=== PATIENT | female | born 1980 ===

== ENCOUNTER 2017-04-25 15:03 | Emergency (ER) | payer OTHER ==
[2017-04-25 15:53] VITALS: BP 152/86; PULSE 114; RESP 16; TEMP 98.2; O2SAT 100
--- NOTE | 2017-04-25 16:16 | ED PDOC ---
HPI: Female Pain Time Seen by Provider: 04/25/17 15:50 Chief Complaint (Nursing): Female Genitourinary Chief Complaint (Provider): Female Genitourinary History Per: Patient History/Exam Limitations: no limitations Onset/Duration Of Symptoms: Days (x4) Current Symptoms Are (Timing): Still Present Additional Complaint(s): Neva Burnett is a 37 year old female who presents to the ED due to a possible UTI x4 days. Patient confirms dysuria, urinary requency, urinary hesitancy, and slight hematuria. Denies fever, vomiting, and diarrhea. States she was given 1 tablet of Macrobid by a friend with no relief. Concerned of possible . PMD: Non-[facility] Provider Past Medical History Reviewed: Historical Data, Nursing Documentation, Vital Signs Vital Signs: Last Vital Signs Temp 98.2 F 04/25/17 15:50 Pulse 114 H 04/25/17 15:50 Resp 16 04/25/17 15:50 BP 152/86 H 04/25/17 15:50 Pulse Ox 100 04/25/17 15:50 - Family History Family History: States: Unknown Family Hx - Home Medications Home Medications: Ambulatory Orders Medication Instructions Recorded Cephalexin [Keflex] 500 mg PO QID #20 04/25/17 Multivit/Folic Acid/I 1 tab PO DAILY #15 tab 04/25/17 [ Plus] - Allergies Allergies/Adverse Reactions: Allergies Allergy/AdvReac Type Severity Reaction Status Date / Time No Known Allergies Allergy Verified 04/25/17 15:50 Review of Systems ROS Statement: Except As Marked, All Systems Reviewed And Found Negative Constitutional: Negative for: Fever Gastrointestinal: Negative for: Vomiting, Diarrhea Genitourinary Female: Positive for: Dysuria, Frequency, Hematuria, Other ( urinary hesitancy) Physical Exam - Reviewed Nursing Documentation Reviewed: Yes Vital Signs Reviewed: Yes - Physical Exam Appears: Positive for: Well, Non-toxic, No Acute Distress Head Exam: Positive for: ATRAUMATIC, NORMAL INSPECTION, NORMOCEPHALIC Skin: Positive for: Normal Color. Negative for: Rash Eye Exam: Positive for: Normal appearance Neurologic/Psych: Positive for: Alert, Oriented - Laboratory Results Urine POC: Positive Urine dip results: Negative for: Leukocyte Esterase, Blood, Nitrate, Ketones, Glucose, Bilirubin, Protein - ECG O2 Sat by Pulse Oximetry: 100 (RA) Pulse Ox Interpretation: Normal - Progress ED Course And Treament: URINE SENT FOR UA/UC/GC Medical Decision Making Medical Decision Making: Time: 15:59 Clinical Impression: Possible UTI Plan: --Urine --Urine dipstick --Reevaluation Time: 16:16 -- test positive Scribe Attestation: Documented by Armando Hernandez, acting as a scribe for Yaa Mohamud PA-C Provider Scribe Attestation: All medical record entries made by the Scribe were at my direction and personally dictated by me. I have reviewed the chart and agree that the record accurately reflects my personal performance of the history, physical exam, medical decision making, and the department course for this patient. I have also personally directed, reviewed, and agree with the discharge instructions and disposition. Disposition - Clinical Impression Clinical Impression: Dysuria - Patient ED Disposition Is Patient to be Admitted: No - Disposition [facility] Disposition: Routine/Home Disposition Time: 16:26 Condition: FAIR Prescriptions: Cephalexin [Keflex] 500 mg PO QID #20 Multivit/Folic Acid/I [ Plus] 1 tab PO DAILY #15 tab Instructions: Dysuria (ED) Forms: [employer] (Maltese) Print Language: SINHALA
[2017-04-25 17:02] LABS: RBC URINE 3 /hpf (0-3); URINE BACTERIA RARE (<OCC); URINE BILIRUBIN NEGATIVE (NEGATIVE); URINE BLOOD NEGATIVE (NEGATIVE); URINE COLOR YELLOW (YELLOW); URINE GLUCOSE (UA) NEG (Normal); URINE KETONE NEGATIVE (NEGATIVE); URINE LEUKOCYTE ESTERASE NEG Leu/uL (Negative); URINE PROTEIN NEGATIVE (NEGATIVE); URINE UROBILINOGEN 0.2-1.0 mg/dL (0.2-1.0); WBC URINE 1 /hpf (0-5)
== END 2017-04-25 17:00 | disposition home or self-care (01) ==
LOC: H.ER 15:03
DX: R30.0 Dysuria (principal); Z32.01 Encounter for pregnancy test, result positive

== ENCOUNTER 2017-05-09 01:10 | Emergency (ER) | payer SELFPAY ==
[2017-05-09 01:26] VITALS: BP 132/70; PULSE 80; RESP 16; TEMP 99; O2SAT 100
[2017-05-09] MEDS ORDERED: Sodium Chloride 0.9% 1,000 ML IV STA (01:38)
[2017-05-09 02:18] LABS: BASO % 0.2 % (0.0-2.0); LYMPH # 0.9 K/uL (1.0-4.3); LYMPH % 7.2 % (20.0-40.0); MEAN CELL VOLUME 95.1 fl (81.0-99.0); MEAN CORPUSCULAR HEMOGLOBIN 31.7 pg (27.0-31.0); MEAN CORPUSCULAR HGB CONC 33.3 g/dL (33.0-37.0); MEAN PLATELET VOLUME 8.9 fl (7.2-11.7); MONO # 0.5 K/uL (0.0-0.8); NEUT # 11.5 K/uL (1.8-7.0); NEUT % 88.6 % (50.0-75.0); PLATELET COUNT 303 K/uL (130-400); RBC URINE 1 /hpf (0-3); RED CELL DISTRIBUTION WIDTH 13.1 % (11.5-14.5); URINE BILIRUBIN NEGATIVE (NEGATIVE); URINE BLOOD NEGATIVE (NEGATIVE); URINE COLOR YELLOW (YELLOW); URINE GLUCOSE (UA) NEG (Normal); URINE KETONE NEGATIVE (NEGATIVE); URINE LEUKOCYTE ESTERASE NEG Leu/uL (Negative); URINE PROTEIN NEGATIVE (NEGATIVE); URINE UROBILINOGEN 0.2-1.0 mg/dL (0.2-1.0); WBC URINE 1 /hpf (0-5)
[2017-05-09 02:25] LABS: ALB/GLOB RATIO 1.2 (1.0-2.1); BILIRUBIN,TOTAL 0.5 mg/dl (0.2-1.3); CALCIUM 9.3 mg/dL (8.4-10.2); CARBON DIOXIDE 20 mmol/L (22-30); CHLORIDE 104 mmol/L (98-107); GFR AFRICAN-AMERICAN > 60; GLUCOSE,RANDOM 115 mg/dL (65-105); LIPASE 68 U/L (23-300); SODIUM 138 mmol/l (132-148); TOTAL PROTEIN 8.4 G/DL (6.3-8.2)
--- NOTE | 2017-05-09 02:32 | ED PDOC ---
HPI: Abdomen Time Seen by Provider: 05/09/17 01:27 Chief Complaint (Nursing): Abdominal Pain Chief Complaint (Provider): abdominal pain History Per: Patient History/Exam Limitations: no limitations Onset/Duration Of Symptoms: Days (1), Persistent Outside of [place] travel?: No Current Symptoms Are (Timing): Still Present Severity: Moderate Pain Scale Rating Of: 3 Location Of Pain/Discomfort: Epigastric Quality Of Discomfort: Cramping Associated Symptoms: Nausea, Diarrhea (x2), Loss Of Appetite. denies: Fever, Chills, Vomiting, Back Pain, Chest Pain, Constipation, Urinary Symptoms Exacerbating Factors: Food Alleviating Factors: Rest Last Bowel Movement: Today Additional History Per: Patient (6 weeks . ) Past Medical History Reviewed: Historical Data, Nursing Documentation, Vital Signs Vital Signs: Last Vital Signs Temp 99 F 05/09/17 01:22 Pulse 80 05/09/17 01:22 Resp 16 05/09/17 01:22 BP 132/70 05/09/17 01:22 Pulse Ox 100 05/09/17 02:33 - Medical History PMH: No Chronic Diseases - Family History Family History: States: Unknown Family Hx - Home Medications Home Medications: Ambulatory Orders Medication Instructions Recorded Cephalexin [Keflex] 500 mg PO QID #20 04/25/17 Multivit/Folic Acid/I 1 tab PO DAILY #15 tab 04/25/17 [ Plus] Famotidine [Pepcid] 20 mg PO BID #16 tab 05/09/17 - Allergies Allergies/Adverse Reactions: Allergies Allergy/AdvReac Type Severity Reaction Status Date / Time No Known Allergies Allergy Verified 05/09/17 01:22 Review of Systems ROS Statement: Except As Marked, All Systems Reviewed And Found Negative Constitutional: Negative for: Fever, Chills Gastrointestinal: Positive for: Nausea, Abdominal Pain. Negative for: Vomiting Physical Exam - Reviewed Nursing Documentation Reviewed: Yes Vital Signs Reviewed: Yes - Physical Exam Appears: Positive for: Well, Non-toxic, No Acute Distress Skin: Positive for: Normal Color, Warm, DRY Cardiovascular/Chest: Positive for: Regular Rate, Rhythm Respiratory: Positive for: CNT, Normal Breath Sounds Gastrointestinal/Abdominal: Positive for: Bowel Sounds, Soft, Tenderness (RUQ pain) Extremity: Positive for: Normal ROM Neurologic/Psych: Positive for: Alert, Oriented - Laboratory Results Result Diagrams: 05/09/17 02:12 12/11/17 02:12 - ECG O2 Sat by Pulse Oximetry: 100 - Progress ED Course And Treament: Orders Category Date Time Status COMP METABOLIC PANEL Stat Chem 05/09/17 02:12 Results LIPASE Stat Chem 05/09/17 02:12 Results CBC (WITH DIFFERENTIAL) Stat TODD 05/09/17 02:12 Results Famotidine [Pepcid] Med 05/09/17 01:57 Discontinued 20 mg .ROUTE .STK-MED ONE Famotidine [Pepcid] Med 05/09/17 01:38 Discontinued 20 mg IVP STAT STA Sodium Chloride 0.9% 1,000 ml Med 05/09/17 01:38 Active IV 1,000 mls/hr UA [URINALYSIS] Stat URINALYSIS 05/09/17 02:12 Completed Re-evaluation Time: 02:33 Condition: Improved Medical Decision Making Medical Decision Making: pt with slightly elevated wBC, however remainder labs: 05/09/17 05/09/17 05/09/17 02:12 02:12 02:12 WBC 13.0 H RBC 4.21 Hgb 13.3 Hct 40.0 MCV 95.1 MCH 31.7 H MCHC 33.3 RDW 13.1 Plt Count 303 MPV 8.9 Neut % (Auto) 88.6 H Lymph % (Auto) 7.2 L [place] % (Auto) 4.0 Eos % (Auto) 0.0 Baso % (Auto) 0.2 Neut # 11.5 H Lymph # 0.9 L [place] # 0.5 Eos # 0.0 Baso # 0.0 Neutrophils % (Manual) Pending Lymphocytes % (Manual) Pending Monocytes % (Manual) Pending Platelet Estimate Pending Sodium 138 Potassium 3.9 Chloride 104 Carbon Dioxide 20 L Anion Gap 18 BUN 7 Creatinine 0.5 L Est GFR ( Amer) > 60 Est GFR (Non-Af Amer) > 60 Random Glucose 115 H Calcium 9.3 Total Bilirubin 0.5 AST 33 ALT 20 Alkaline Phosphatase 61 Total Protein 8.4 H Albumin 4.6 Globulin 3.8 Albumin/Globulin Ratio 1.2 Lipase 68 Urine Color Yellow Urine Clarity Slighty-cloudy Urine pH 5.0 Ur Specific [place] 1.016 Urine Protein Negative Urine Glucose (UA) Neg Urine Ketones Negative Urine Blood Negative Urine Nitrate Negative Urine Bilirubin Negative Urine Urobilinogen 0.2-1.0 Ur Leukocyte Esterase Neg Urine RBC (Auto) 1 Urine Microscopic WBC 1 Ur Squamous Epith Cells 4 Disposition - Clinical Impression Clinical Impression: Abdominal pain - Patient ED Disposition Is Patient to be Admitted: No Counseled Patient/Family Regarding: Studies Performed, Diagnosis, Need For Followup, Rx Given - Disposition Referrals: [facility] [Outside] Disposition: Routine/Home Disposition Time: 02:37 Condition: STABLE Prescriptions: Famotidine [Pepcid] 20 mg PO BID #16 tab Instructions: Gastroenteritis (DC) Print Language: PORTUGUESE
[2017-05-09 02:33] LABS: ALKALINE PHOSPHATASE 61 U/L (38-126); ALT/SGPT 20 U/L (9-52); AST/SGOT 33 U/L (14-36); BLOOD UREA NITROGEN 7 mg/dl (7-17); POTASSIUM 3.9 MMOL/L (3.6-5.0)
[2017-05-09 03:01] LABS: BASOPHIL 1 % (0-2); NEUTROPHIL 85 % (42-75); REACTIVE LYMPHOCYTES 1 % (0-0); TOTAL CELLS COUNTED 100
== END 2017-05-09 02:52 | disposition home or self-care (01) ==
LOC: H.ER 01:10
DX: K52.9 Noninfective gastroenteritis and colitis, unspecified (principal); Z33.1 Pregnant state, incidental
CPT/HCPCS: 80053; 81003; 83690; 85025; 96374; 99282; J7040

== ENCOUNTER 2017-09-11 03:32 | Emergency (ER) | payer SELFPAY ==
[2017-09-11 03:50] VITALS: BP 121/20; PULSE 82; TEMP 98.3; O2SAT 98; BMI 28.3
--- NOTE | 2017-09-11 05:14 | ED PDOC ---
HPI: Abdomen Time Seen by Provider: 09/11/17 04:15 Chief Complaint (Nursing): GI Problem Chief Complaint (Provider): Hemorrhoids History Per: Patient History/Exam Limitations: no limitations Onset/Duration Of Symptoms: Days Outside of [place] travel?: No Current Symptoms Are (Timing): Still Present Additional Complaint(s): 37yo female, 23 weeks , presents to ED for evaluation as she thinks she might have a hemorrhoid. she reports rectal pain but denies any rectal bleeding. patient denies any abdominal pain, vaginal bleeding, urinary symptom, fever, chills. She also states she is able to feel her baby move. Patient has no other medical complaints. Past Medical History Reviewed: Historical Data, Nursing Documentation, Vital Signs Vital Signs: Last Vital Signs Temp 98.3 F 09/11/17 03:45 Pulse 82 09/11/17 03:45 Resp BP 121/20 L 09/11/17 03:45 Pulse Ox 98 09/11/17 06:11 - Medical History PMH: No Chronic Diseases - Surgical History Surgical History: No Surg Hx - Family History Family History: States: Unknown Family Hx - Home Medications Home Medications: Ambulatory Orders Medication Instructions Recorded Cephalexin [Keflex] 500 mg PO QID #20 04/25/17 Multivit/Folic Acid/I 1 tab PO DAILY #15 tab 04/25/17 [ Plus] Famotidine [Pepcid] 20 mg PO BID #16 tab 05/09/17 - Allergies Allergies/Adverse Reactions: Allergies Allergy/AdvReac Type Severity Reaction Status Date / Time No Known Allergies Allergy Verified 09/11/17 03:49 Review of Systems ROS Statement: Except As Marked, All Systems Reviewed And Found Negative Constitutional: Negative for: Fever, Chills Cardiovascular: Negative for: Chest Pain Respiratory: Negative for: Shortness of Breath Gastrointestinal: Negative for: Nausea, Vomiting, Abdominal Pain, Diarrhea, Hematochezia Physical Exam - Physical Exam Comments: GENERAL APPEARANCE: Patient is awake, alert, oriented x 3, in no acute distress SKIN: Warm, dry; (-) cyanosis. EYES: (-) conjunctival pallor, (-) scleral icterus. ENMT: Mucous membranes moist. NECK: (-) tenderness, (-) stiffness, (-) lymphadenopathy. CHEST AND RESPIRATORY: (-) rales, (-) rhonchi, (-) wheezes; breath sounds equal bilaterally. HEART AND CARDIOVASCULAR: (-) irregularity; (-) murmur, (-) gallop. ABDOMEN AND GI: (+) Gravid abdomen. Bowel sounds active. (-) guarding, (-) rebound, (-) palpable masses, (-) CVA tenderness. RECTAL: (+) non-thrombosed hemorrhoid at 6 o'clock. THEATRE INSTRUCTOR present during the entire exam. EXTREMITIES: (-) deformity, (-) edema, (+) distal pulses. NEURO AND PSYCH: Mental status as above; (-) focal findings. - ECG O2 Sat by Pulse Oximetry: 98 (RA) Pulse Ox Interpretation: Normal Medical Decision Making Medical Decision Making: Impression: Rectal pain Plan: -- Hemorrhoid reduced by PA, patient tolerated the procedure well. -- Based on history and exam, plan will be for discharge home and follow up with PCP and OBGYN. Advised to follow up with primary care physician in 1-2 days without fail. Advised to increase intake in fiber, water and to do sitz baths. Return to the emergency room at any time for any new or worsening symptoms. Patient states she fully agrees with and understands discharge instructions. States that she agrees with the plan and disposition. Verbalized and repeated discharge instructions and plan. I have given the patient opportunity to ask any additional questions. Scribe Attestation: Documented by Edwina Beard acting as a scribe for MAHESH Marshall. Provider Attestation: All medical record entries made by the Scribe were at my direction and personally dictated by me. I have reviewed the chart and agree that the record accurately reflects my personal performance of the history, physical exam, medical decision making, and the department course for this patient. I have also personally directed, reviewed, and agree with the discharge instructions and disposition. Disposition - Clinical Impression Clinical Impression: Hemorrhoids - Patient ED Disposition Is Patient to be Admitted: No Counseled Patient/Family Regarding: Diagnosis, Need For Followup, Rx Given - Disposition Disposition: Routine/Home Disposition Time: 05:15 Condition: STABLE Additional Instructions: Thank you for letting us take care of you today. You were treated for hemorrhoids. The emergency medical care you received today was directed at your acute symptoms. Increase fiber and water intake. Do sitz baths. It may take several days for your symptoms to resolve. Return to the Emergency Department if your symptoms worsen, do not improve, or if you have any other problems. Please contact your doctor in 2 days for re-evaluation and follow up. Bring any paperwork you were given at discharge with you along with any medications you are taking to your follow up visit. Our treatment cannot replace ongoing medical care by a primary care provider (PCP) outside of the emergency department. Thank you for allowing the [facility] team to be part of your care today. Instructions: Hemorrhoids Forms: [employer] (Filipino), [facility] ED School/Work Excuse Print Language: MEXICAN
== END 2017-09-11 05:45 | disposition home or self-care (01) ==
LOC: H.ER 03:32
DX: K64.9 Unspecified hemorrhoids (principal)

== ENCOUNTER 2017-09-11 18:02 | Emergency (ER) | payer SELFPAY ==
[2017-09-11 03:50] VITALS: BMI 28.3
[2017-09-11] MEDS ORDERED: Hydrocortisone 2.5% (Rectal) CREAM PR SCH (19:45)
[2017-09-12 00:50] VITALS: BP 109/62; PULSE 88; RESP 16; TEMP 98.4; O2SAT 100
== END 2017-09-11 20:00 | disposition home or self-care (01) ==
LOC: H.EROB2 18:02
DX: O22.42 Hemorrhoids in pregnancy, second trimester (principal); Z98.890 Other specified postprocedural states; O26.92 Pregnancy related conditions, unspecified, second trimester; K62.5 Hemorrhage of anus and rectum; Z3A.25 25 weeks gestation of pregnancy

== ENCOUNTER 2017-12-20 06:39 | Inpatient (IN) | payer MEDICAID, SELFPAY ==
[~2017-12-20 06:39] MED LIST: Lactated Ringer's 1,000 ML IV ONE; ceFAZolin IV 2 gm in Dextrose 2 GM/50 ML BAG IVPB ONE
[2017-12-20 07:41] LABS: BASO % 0.5 % (0.0-2.0); EOS # 0.1 K/uL (0.0-0.7); EOS % 1.1 % (0.0-4.0); LYMPH # 1.6 K/uL (1.0-4.3); LYMPH % 26.7 % (20.0-40.0); MEAN CELL VOLUME 99.5 fl (81.0-99.0); MEAN CORPUSCULAR HEMOGLOBIN 33.7 pg (27.0-31.0); MEAN CORPUSCULAR HGB CONC 33.9 g/dL (33.0-37.0); MEAN PLATELET VOLUME 9.3 fl (7.2-11.7); MONO # 0.7 K/uL (0.0-0.8); NEUT # 3.7 K/uL (1.8-7.0); NEUT % 60.7 % (50.0-75.0); NRBC % 0.1 % (0.0-0.0); RBC 4.15 Mil/uL (3.80-5.20); RED CELL DISTRIBUTION WIDTH 14.6 % (11.5-14.5); WHITE BLOOD COUNT 6.2 K/uL (4.8-10.8)
[2017-12-20 07:42] VITALS: RESP 20; O2SAT 100
[2017-12-20 07:49] VITALS: BMI 28.3
[2017-12-20] MEDS ORDERED: Oxytocin 30 units/LR 500ML 30 U/500 ML BAG IV ONE (08:00)
[2017-12-20] MEDS ORDERED: ePHEDrine 50 mg/ml Inj ONE (08:04)
[2017-12-20] MEDS ORDERED: Morphine 1 mg/ml preservative-free Inj(Duramorph) ONE (08:04)
[2017-12-20] MEDS ORDERED: Phenylephrine 10 mg/ml Inj ONE (08:04)
[2017-12-20] MEDS ORDERED: Sodium Chloride 0.9% 10 ML IV ONE (08:05)
--- NOTE | 2017-12-20 08:23 | OBADHP ---
Datetime: 12/20/2017 07:25 Admit Comment, IP Provider: [id number] Pt is a 40.5wk with NASRA 12/25, LMP 03/20. Patient is here for a scheduled C section with BT L, she sees Dr. Oswald in the clinic, Dr. Darron jara. Denies any contractions, LOF, or vaginal bleeding. Reports good movements. Patient states she has some constipation, denies headaches, b lurry vision, chest pain, SOB, NVD, or burning with urination. 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 Agree with above note. --Dr. Oswald-Alicia Extremities - PN: Normal Abdomen - PN: Normal Lungs - PN: Normal Heart - PN: Normal HEENT - PN: Normal General - PN: Normal IP Hx Assessment: The History has been Reviewed and is Current Vital Signs Provider: Reviewed; Within Normal Limits IP Chief Complaint: Scheduled Section Dilatation, Provider: 0 EGA AdmitDate IP: 39.2 IP Adm Impression: Term, intrauterine ; No Active Labor; Intact Membranes IP Admit Plan: Initiate Section protocol Datetime: 09/11/2017 19:35 Back - PN: Normal Neurologic - PN: Normal FHR - Baseline A Provider: Raul
[2017-12-20] MEDS ORDERED: Oxycodone/Acetaminophen 5/325 mg Tab PO PRN ×5 (10:33→13:38)
[2017-12-20] MEDS ORDERED: Lactated Ringer's 1,000 ML IV SCH (10:45)
--- NOTE | 2017-12-20 10:50 | OBDS ---
DELIVERY PERSONNEL Delivery Doctor: Blaise Lovelace MD Scrub Nurse: Tamera Linder OBT Agricultural Commodities Inspector: Deanne Guerrero RN/ Dayanara Garza RN Anesthesiologist: Rudolph Chapman MD Resident: Dr Paul MATERNAL INFORMATION Delivery Anesthesia: Spinal Medications in Delivery: Pitocin 30 units in 500ml LR Estimated Blood Loss (ml): 800 Placenta Cultured: No Maternal Complications: None Provider Comments: See Operative Report LABOR SUMMARY EDC: 12/25/2017 00:00 No. Babies in Womb: 1 Attempted: No Labor Anesthesia: None LABOR INFORMATION Reason for Induction: Not Applicable Reason for Induction Other: N/A Other Ripening Agents: N/A Oxytocin: N/A Group B Beta Strep: Negative Antibiotics # of Doses: N/A Antibiotics Time of Last Dose: N/A Steroids Given: None Reason Steroids Not Administered: Not Applicable Other Reason Not Administered: N/A MEMBRANES Membranes Rupture Method: Artificial Rupture of Membranes: 12/20/2017 09:45 Length of Rupture (hrs): 0.03 Amniotic Fluid Color: Light Meconium Amniotic Fluid Amount: Small Amniotic Fluid Odor: None STAGES OF LABOR Stage 3 hrs: 0 Stage 3 min: 1 CSECTION DELIVERY Primary Indication: Repeat CSection Urgency: Non Elective CSection Incidence: Repeat Labor: N/A Elective: Nonelective CSection Incision: Lower Uterine Transverse Sterilization Procedure: Shelbie BABY A INFORMATION Delivery Date/Time: 12/20/2017 09:47 Method of Delivery: Born in Route : No : N/A Forceps: N/A Vacuum Extraction: Successful Shoulder Dystocia : No ASSISTED DELIVERY BABY A Indication for Assisted Delivery: nondescent of head into incisional site Catheter Prior to Procedure: No Vacuum Number of Pulls: 1 Vacuum Number of PopOffs: 0 Vacuum Furniture Upholsterer: Gazelle Total Time Vacuum Applied: less than 10 seconds Type of Forceps: N/A SHOULDER DYSTOCIA BABY A Infant Delivery Date/Time: 12/20/2017 09:47 PRESENTATION/POSITION BABY A Presentation: Cephalic Cephalic Presentation: Vertex Breech Presentation: N/A PLACENTA INFORMATION BABY A Placenta Delivery Time : 12/20/2017 09:48 Placenta Method of Delivery: Manual Removal Placenta Status: Delivered SCORES BABY A Heart Rate 1 min: >100 bpm Resp Effort 1 min: Good Cry Reflex Irritability 1 min: Cough or Sneeze or Pulls Away Muscle Tone 1 min: Active Motion Color 1 min: Body Valeria, Extremities Blue Resuscitation Effort 1 min: Tactile Stimulation; Oxygen SCORE 1 MIN: 9 Heart Rate 5 min: >100 bpm Resp Effort 5 min: Good Cry Reflex Irritability 5 min: Cough or Sneeze or Pulls Away Muscle Tone 5 min: Active Motion Color 5 min: Body Valeria, Extremities Blue Resuscitation Effort 5 min: N/A SCORE 5 MIN: 9 INFORMATION BABY A Gestational Age at Delivery: 39.2 Gestational Status: Term Outcome : Liveborn Condition : Stable Sex: Male IDENTIFICATION/MEDS BABY A ID Band Number: [id number] ID Band Location: Left Leg; Left Arm Vitamin K Given : Not Given Erythromycin Given: Not Given WEIGHT/LENGTH BABY A Infant Birthweight (gms): 3055 Weight (lb): 6 Infant Weight (oz): 12 CORD INFORMATION BABY A No. Cord Vessels: 3 Nuchal Cord : N/A Nuchal Cord Other: 0 True Knot: 0 Cord pH Baby Arterial: N/A Cord pH Baby Venous: N/A Cord Blood Taken: Yes Banking/Donate Info: N/A Infant Suction: Mouth; Nose ASSESSMENT BABY A Infant Complications: Meconium Infant Complications Other: Light meconium Physical Findings at Delivery: Within Normal Limits Infant Respirations: Grunting Table Saw Operator/ALS Called : No Infant Care By: Jenna Lara Rn Transferred To: [facility]
[2017-12-20] MEDS ORDERED: DiphenhydrAMINE 50 mg/ml Inj IVP PRN ×2 (11:12→13:38)
[2017-12-20] MEDS: Oxycodone/Acetaminophen 5/325 mg Tab PO PRN (14:17)
[2017-12-20] MEDS ORDERED: Simethicone 80 mg Chewtab PO SCH (16:00)
[2017-12-20] MEDS: Simethicone 80 mg Chewtab PO SCH ×2 (17:12→21:43)
[2017-12-20] MEDS: Lactated Ringer's 1,000 ML IV SCH (17:13)
--- NOTE | 2017-12-20 22:23 | OP ---
PROCEDURE DATE: 12/20/2017 PREOPERATIVE DIAGNOSES: Term , advanced maternal age with previous section and multiparity, desires repeat. POSTOPERATIVE DIAGNOSES: Term , advanced maternal age with previous section and multiparity, desires repeat. PROCEDURES: Repeat low transverse section and bilateral tubal ligation. SURGEON: Neftaly English MD AGRONOMY MANAGER: Pavan Vargas MD ESTIMATED BLOOD LOSS: 800 mL. URINE OUTPUT: 300 mL clear at the end of procedure. INTRAVENOUS FLUIDS: 1500 mL Lactated ringers. PATHOLOGY: Segment of Right and Left Fallopian tube FINDINGS: A live male with Apgars of 9 and 9, weight 6 pounds 11.8 ounces, delivered at 9:47 a.m. in vertex presentation, light meconium fluid noted; grossly normal tubes, ovaries, and uterus. DESCRIPTION OF PROCEDURE: The patient was taken to the operating room and given spinal anesthesia without difficulty. She was then prepped and draped in a normal sterile fashion in the dorsal supine position with a leftward tilt. A Pfannenstiel skin incision was then made through the previous scar with the scalpel and carried to the underlying fascia with the Bovie. The fascia was incised in the midline, and the incision was extended laterally using the Bovie. The inferior aspect of fascial incision was then dissected off sharply with the Bovie, then bluntly. Attention was then turned to the superior aspect of the fascial incision which in a similar fashion was dissected off with the Bovie, then bluntly. The rectus muscle was meticulously in the midline. The peritoneum was identified, tented up and entered with Metzenbaum scissors; and this incision was extended laterally, superiorly, and inferiorly paying close attention to bladder. The bladder blade was then reinserted. The vesicouterine peritoneum was identified, tented up, and entered with Metzenbaum scissors; and this incision was extended laterally and a bladder flap was created digitally. The bladder blade was inserted and the lower uterine segment was entered in transverse fascia with the scalpel. This incision was then extended laterally using bandage scissors, and the infant was then delivered in vertex presentation with one application of the vacuum as the head did not descend all the way into the incisional site. There were no pop-offs. The baby was delivered atraumatically. The nose and mouth were suctioned on the abdomen. The cord was doubly clamped and cut. The infant was handed off to the awaiting glass worker. Cord blood was then taken. The placenta was extracted manually intact. The uterus was exteriorized and cleared of all clots and debris. The uterine incision was then closed with 1 Vicryl in a running lock fashion and one further [id number] suture was then placed, and good hemostasis was noted. Copious irrigation was then performed. At this time, attention was then turned to the tube and 2-0 chromic suture was used to perform a tubal ligation using a Haigler technique bilaterally. The Bovie was used to obtain good hemostasis on the cut portion of the tube and the segment of the right and left fallopian tubes were handed off the field for pathology. The uterus was returned to the abdomen. The copious irrigation was again performed. The gutters were cleared of all clots. Inspection of the incision site and the site of tubal ligation was again inspected and good hemostasis was noted. The peritoneum was then closed with 2-0 Vicryl in a running fashion along with rectus muscles. The fascia was closed with 0 Vicryl in a running fashion bilaterally to the midline. The Bovie was used to obtain good hemostasis and subcutaneous fat layer was then closed with #3 interrupted sutures using a 3-0 plain suture. The skin was closed with kenya and covered with a sterile dressing. The patient tolerated the procedure well. Sponge, lap, and needle counts were correct x4. Ancef 1 gm was given preoperatively. The patient was taken to the recovery room in stable condition. There was no injury to the bladder, bowel, ureter, or baby. Due to the nature of this case, an assistance was requested. My optometry assistant, Dr. Vargas, was present for the entire procedure from the initial incision to the patient transfer to the recovery room. He assisted with retraction to provide good exposure to minimize blood loss. He also assisted for entry into the abdominopelvic cavity, and also closure of the uterus and all layers of the abdominal wall including the the fascia, peritoneum, rectus muscles, and skin incision. His assistance was vital for performing this procedure. Neftaly English MD [facility] # [id number] KAY
[2017-12-21] MEDS: Lactated Ringer's 1,000 ML IV SCH (00:53)
[2017-12-21] MEDS: Simethicone 80 mg Chewtab PO SCH ×4 (05:02→21:00)
[2017-12-21 06:13] LABS: HEMOGLOBIN 11.2 g/dL (12.0-16.0); MEAN CELL VOLUME 99.7 fl (81.0-99.0); MEAN CORPUSCULAR HGB CONC 34.1 g/dL (33.0-37.0); RBC 3.3 Mil/uL (3.80-5.20); RED CELL DISTRIBUTION WIDTH 14.5 % (11.5-14.5)
[2017-12-21] MEDS: Multivitamin With Minerals Tab PO SCH (08:26)
[2017-12-21] MEDS ORDERED: Multivitamin With Minerals Tab PO SCH (09:00)
--- NOTE | 2017-12-21 11:09 | OBPPN ---
Datetime: 12/21/2017 10:02 PP Pain Prov: Within normal limits PP Nausea Prov: Denies PP Flatus Prov: Yes PP BM Prov: No PP Heart Prov: Normal PP Lungs Prov: Normal PP Abdomen/Uterus Prov: Normal PP Lochia Prov: Normal PP Extremities Prov: Normal PP C/S Incision Prov: Normal PP Impression Prov: Normal progression PP Plan Prov: Continue present management PP Progress Note Prov: S: Pt is a 37 yo 40.5 wk s/p C section on 12/20/17 POD 1. Seen and exa mined at bedside this am. Patient denies any significant overnight events. Reports mild pelvic pain which is controlled with pain medicine. Has not ambulated yet. Bottle feeding without difficulty. Wi ll advance diet as tolerated today. Lochia is similar to menses. Voiding freely with no blood noted, peterson removed, Patient has not had a bowel movement, but is passing gas per rectum. Patient had some nausea and vomiting last night, denies fever/chills, diarrhea, constipation, CP/SOB , lightheadednes s. O: BP:124/59, HR:72 CBC-11.2/32.9, blood type: A+, rubella: Immune PHYSICAL EXAM: GEN: AAOx3, Resting comfortably in bed, NAD HEENT: NCAT, White sclera, pink conjunctiva, oral mucosa moist. LUNGS: CTA B/L, no wheezing, rhonchi, or rales, B/L chest rise CVS: RRR, S1, S2, No murmurs, rubs, gallops ABD: ND, +BS, firm fundus @ umbilical level. Soft, appropriate TTP, Dressing covering incision robbie an and dry EXT: no edema, negative Andrea's sign, calves non tender NEURO/Psych: no gross focal deficit, preserved affect and mood. A/P 37 y/o s/p C -section on 12/20/17 @ 9:47 POD1. Pt afebrile, tolerating pain with medication , will advance diet as tolerated, adequate urine output. Encouraged breast feeding and ambulation Ibuprofen 600mg mild pain Percocet 5/325mg 1 tab po q 4h for mod/severe pain PNV 1 tab po daily Colace and Sqqtitt79.2mg PO HS for constipation Simethicone for flatulence Post op contraception- Had a BTL during section F/U 1 wk for wound check 4-6 weeks for post- visit at the [facility] Deneen Richardson M.D. PGY-1 Patient was seen and case discussed with Dr. Zhang Patient seen and examined by me this am. Agree with above resident note. Ambulation and breast fee ding encouraged. Continue pain meds as needed. --Dr. Lovelace IP PP Procedures: Tubal Ligation Vital Signs Provider PP: Reviewed; Within Normal Limits
[2017-12-21] MEDS: Oxycodone/Acetaminophen 5/325 mg Tab PO PRN (21:00)
[2017-12-22] MEDS: Simethicone 80 mg Chewtab PO SCH ×6 (03:53→21:41)
[2017-12-22] MEDS: Oxycodone/Acetaminophen 5/325 mg Tab PO PRN ×3 (08:35→21:42)
[2017-12-22] MEDS: Multivitamin With Minerals Tab PO SCH (08:36)
--- NOTE | 2017-12-22 16:30 | OBPPN ---
Datetime: 12/22/2017 08:01 PP Pain Prov: Within normal limits PP Nausea Prov: Denies PP Flatus Prov: No PP BM Prov: No PP Heart Prov: Normal PP Lungs Prov: Normal PP Abdomen/Uterus Prov: Normal PP Lochia Prov: Normal PP Extremities Prov: Normal PP C/S Incision Prov: Normal PP Progress Prov: Normal PP Impression Prov: Normal progression PP Plan Prov: Continue present management PP Progress Note Prov: [id number] S: Pt is a 37 yo 40.5 wk s/p C section on 12/20/17 POD 2. Seen and examined at bedside this am. Patient denies any significant overnight events. Reports abdominal pelvic pain which is control led with pain medicine. OOB Ambulating well. Breast feeding without difficulty. Tolerating diet. Loc hia is similar to menses. Voiding freely with no blood noted, Patient has not had a bowel movement, a nd is not passing gas per rectum. Complains of some constipation, denies fever/chills, diarrhea, naus ea, vomiting, CP/SOB , lightheadedness. O: BP:110/64, HR:88, T 98.1F CBC-11.2/32.9, blood type: A+, rubella: Immune PHYSICAL EXAM: GEN: AAOx3, Resting comfortably in bed, NAD HEENT: NCAT, White sclera, pink conjunctiva, oral mucosa moist. LUNGS: CTA B/L, no wheezing, rhonchi, or rales, B/L chest rise CVS: RRR, S1, S2, No murmurs, rubs, gallops ABD: ND,+BS, firm fundus @ umbilical level. Soft, appropriate TTP, Incision clean, dry, intact, no erythema or discharge EXT: no edema, negative Andrea's sign, calves non tender NEURO/Psych: no gross focal deficit, preserved affect and mood. A/P 37 y/o s/p C -section on 12/20/17 @ 9:47 POD 2. Pt afebrile, tolerating pain with medicatio n, tolerating regular diet, adequate urine output. Encouraged breast feeding and ambulation Ibuprofen 600mg mild pain Percocet 5/325mg 1 tab po q 4h for mod/severe pain PNV 1 tab po daily Colace and Ngugcbk36.2mg PO HS for constipation Simethicone for flatulence Post op contraception- Had a BTL during section F/U 1 wk for wound check 4-6 weeks for post- visit at the [facility] Deneen Richardson M.D. PGY-1 Patient was seen and case discussed with Dr. Zhang Patient seen and examined by me this am. Agree with above resident note. Ambulation and breast fee ding encouraged. Patient to continue pain meds as needed. --Dr. Lovelace IP PP Procedures: Tubal Ligation Vital Signs Provider PP: Reviewed; Within Normal Limits
[2017-12-23] MEDS: Simethicone 80 mg Chewtab PO SCH ×2 (04:15→09:11)
[2017-12-23] MEDS: Multivitamin With Minerals Tab PO SCH (09:00)
--- NOTE | 2017-12-23 10:05 | OBDCSUM ---
Datetime: 12/23/2017 07:19 Discharged to, Provider: Home Follow up at, Provider: Your Doctor Disch Instr Activity: May be up to bathroom; May be up for meals; May Shower Disch Instr Diet: Regular Discharge Instructions, Provider: Routine instructions given Discharge Diagnosis, Provider: Term Delivered Follow up in weeks, Provider: 6 weeks Disch Referrals: None Disch Activity Restrictions: Minimize stair-climbing; Nothing in vagina - Peggs, tampons, douc he Discharge Comment, Provider: 1. Continue . 2. Ibuprofen as needed for moderate pain, and percocet for severe pain. 3. Continue walking as much as tolerated. 4. Please plan follow up visit in 3-5 days with trimming department blocker. 5. Please see your doctor in 6 weeks. 6. No heavy lifting or anything in the vagina for 6 weeks. 7. Please avoid stairs if possible. 8. If you develop severe or worsening pain, please go to the ED. The patient was seen with the resident I agree with the note Contraception after Delivery: Tubal Ligation
--- NOTE | 2017-12-23 10:05 | OBPPN ---
Datetime: 12/23/2017 07:35 PP Pain Prov: Within normal limits PP Nausea Prov: Denies PP Flatus Prov: Yes PP BM Prov: Yes PP Heart Prov: Normal PP Lungs Prov: Normal PP Abdomen/Uterus Prov: Normal PP Lochia Prov: Normal PP Extremities Prov: Normal PP Impression Prov: Normal progression PP Plan Prov: Continue present management PP Progress Note Prov: [id number] S: Pt is a 37 yo 40.5 wk s/p C section on 12/20/17 POD 3. Seen and examined at bedside this am. Patient denies any significant overnight events. Reports abdominal pelvic pain which is control led with pain medicine. OOB Ambulating well. Breast feeding without difficulty. Tolerating diet. Loc hia is similar to menses. Voiding freely with no blood noted, Patient has had a bowel movement, and i s passing gas per rectum. Denies fever/chills, diarrhea, nausea, vomiting, CP/SOB , lightheadedness. O: BP:125/75, HR:84, T 98.3F CBC-11.2/32.9, blood type: A+, rubella: Immune PHYSICAL EXAM: GEN: AAOx3, Resting comfortably in bed, NAD HEENT: NCAT, White sclera, pink conjunctiva, oral mucosa moist. LUNGS: CTA B/L, no wheezing, rhonchi, or rales, B/L chest rise CVS: RRR, S1, S2, No murmurs, rubs, gallops ABD: ND, +BS, firm fundus @ umbilical level. Soft, appropriate TTP, Incision clean, dry, intact, n o erythema or discharge EXT: no edema, negative Andrea's sign, calves non tender NEURO/Psych: no gross focal deficit, preserved affect and mood. A/P 37 y/o s/p C -section on 12/20/17 @ 9:47 POD 3. Pt afebrile, tolerating pain with medicatio n, tolerating regular diet, adequate urine output. Encouraged breast feeding and ambulation Ibuprofen 600mg mild pain Percocet 5/325mg 1 tab po q 4h for mod/severe pain PNV 1 tab po daily Zlwberj17.2mg PO HS for constipation Post op contraception- Had a BTL during section F/U 1 wk for wound check 4-6 weeks for post- visit at the [facility] Deneen Richardson M.D. PGY-1 Patient was seen and case discussed with Dr. Zhang The patient was seen with the resident I agree with the note IP PP Procedures: Tubal Ligation Vital Signs Provider PP: Reviewed
[2017-12-23 22:24] VITALS: BP 117/70; PULSE 100; TEMP 98.8
== END 2017-12-23 15:10 | disposition home or self-care (01) | DRG 371 ==
LOC: H.L&D 06:39 → H.OB/GYN 13:10
PROVIDERS: ADMIT Obstetrics & Gynecology; ATTEND Obstetrics & Gynecology
PROC: 10D00Z1 Extraction of Products of Conception, Low, Open Approach (ICD-10-PCS; principal; 2017-12-20)
PROC: 0UB70ZZ Excision of Bilateral Fallopian Tubes, Open Approach (ICD-10-PCS; 2017-12-20)
PROC: 4A1HXCZ Monitoring of Products of Conception, Cardiac Rate, External Approach (ICD-10-PCS; 2017-12-20)
DX: O34.211 Maternal care for low transverse scar from previous cesarean delivery (principal); Z37.0 Single live birth; O77.0 Labor and delivery complicated by meconium in amniotic fluid; N85.8 Other specified noninflammatory disorders of uterus; Z3A.39 39 weeks gestation of pregnancy; Z30.2 Encounter for sterilization